=== PATIENT | male | born 1990 | race Caucasian/White ===

== ENCOUNTER 2016-11-17 15:03 | Emergency (ER) | payer SELFPAY ==
[~2016-11-17] VITALS: Ht 175.3 cm; Wt 81.4 kg
[2016-11-17 15:07] VITALS: Ht 175.3 cm; Wt 81.4 kg
--- NOTE | 2016-11-17 16:17 | ERD ---
ER Documentation Chief Complaint Date/Time DATE: 11/17/16 TIME: 16:13 Chief Complaint right knee pain/injury ( dislocation) HPI Patient is a 26-year-old male who presents to the ED with right knee pain 2 days. Patient states that he was boxing with his brother and twisted. States that his patella moved to the side. He does have a history of patellar dislocation on the left knee. States that the same thing occurred on the right knee. He states that him and his brother put the patella back in place. He does not have pain when he is laying down however he is unable to bear weight and unable to flex and extend due to the pain. Denies radiation of pain. Denies hitting his head, passing out or losing consciousness. Has not taken any medicine for his symptoms besides Motrin which has helped. Has also been icing. Using crutches no other complaints. ROS All systems reviewed and are negative except as per history of present illness. Medications Home Meds Active Scripts Naproxen* (Naprosyn*) 500 Mg Tablet, 500 MG PO BID Y for PAIN AND/OR INFLAMMATION, #30 TAB Prov:KWASI PELLETIER PA-C 11/17/16 Allergies Allergies: Coded Allergies: No Known Allergy (Unverified , 11/17/16) PMhx/Soc Medical and Surgical Hx: pt denies Medical Hx, pt denies Surgical Hx Hx Alcohol Use: No Hx Substance Use: No Hx Tobacco Use: No Smoking Status: Never smoker FmHx Family History: No coronary disease, No diabetes, No other Physical Exam Vitals Vital Signs Date Time Temp Pulse Resp B/P Pulse Ox O2 Delivery O2 Flow Rate FiO2 11/17/16 15:07 98.5 76 19 121/73 100 Physical Exam GENERAL: Well-developed, well-nourished male. Appears in no acute distress. HEAD: Normocephalic, atraumatic. EYES: Pupils are equally reactive bilaterally. EOMs grossly intact. No conjunctival erythema. ENT: Moist mucous membranes. No uvula deviation. No kissing tonsils. No exudates. NECK: Supple. No lymphadenopathy or thyromegaly. No meningismus. negative kernig. negative brudinski. LUNG: Clear to auscultation bilaterally. No rhonchi, wheezing, rales or coarse breath sounds. HEART: Regular rate and rhythm. No murmurs, rubs or gallops. Extremities: Equal pulses bilaterally. No peripheral clubbing, cyanosis or edema. No unilateral leg swelling. NEUROLOGIC: Alert and oriented. swelling and ecchymosis to right knee. limited rom. no pain above or below right knee. no stepoffs or deformities. nontender to palpation to anterior knee, including patella.no stepoffs or deformities. limited strength in right leg. Normal speech. unSteady gait. Distal motor and neurovascularly intact. Able to bear weight and ambulate without pain. SKIN: Normal color. Warm and dry. No rashes or lesions. Capillary refill < 2 seconds Procedures/MDM ER COURSE: I kept the patient and/or family informed of laboratory and diagnostic imaging results throughout the emergency room course. MEDICAL DECISION MAKING: This is a 26-year-old male who presents with right knee pain x 2 days. Vital signs were reviewed. Patient is afebrile. Patient is not hypoxic. X-ray is read by radiologist shows patella ngoc. Large knee joint effusion negative for evidence of acute fracture please note that the skyline view of the patella was not obtained limits evaluation for subtle patellar fractures and also limits evaluation of the patellofemoral alignment. No further x-rays were done as patient does not have any tenderness on palpation of the anterior knee including the patella and the joints above and below. Insulted with my supervising physician Dr. Zaragoza agrees with my medical decision making and discharge plans. Low suspicion for dislocation, fracture, septic joint, compartment syndrome, osteomyelitis, cellulitis, avascular necrosis, neurological injury, vascular injury, tendon laceration. Patient refused pain medication here in the ED. Patient did not want any treatment today. DISCHARGE: At this time, patient is stable for discharge and outpatient management with no new complaints during the ER course. Patient was sent home with Naprosyn, knee immobilizer. Patient had crutches. Neurovascular intact post placement. CD of imaging report given to patient and advised to follow-up with orthopedics. Note for work also given.. Patient will be discharged home with instructions to recheck for new or worsening symptoms such as fever, nausea, weakness, LOC and to follow up with primary care in the next 1-2 days. Patient was advised to return to the ER for any new or worsening symptoms. Plan was discussed and patient and/or family understands and agrees. Home instructions were given. Departure Diagnosis: Primary Impression: Knee pain Chronicity: acute Laterality: right Qualified Code: M25.561 - Acute pain of right knee Condition: Stable KWASI PELLETIER PA-C Nov 17, 2016 16:17
--- NOTE | 2016-11-17 17:32 | RADRPT ---
PROCEDURE: XR Knee. CLINICAL INDICATION: 26-year of age, male. Right knee pain. History of patellar dislocation. TECHNIQUE: Three views of the right knee. COMPARISON: None available. FINDINGS: Negative for evidence of acute fracture. Normal alignment of the tibial femoral joint. There is patella ngoc. The ratio of the length of the patellar tendon to the length of the patella measures 1.4. A skyline view of the patella was not o btained. Joint spaces are preserved without evidence of arthritis. There is a large knee joint effusion. Mild prepatellar soft tissue swelling. IMPRESSION: Patella ngoc. Large knee joint effusion. Negative for evidence of acute fracture. Please note that a skyline view of the patella was not obtained that limits evaluation for subtle patellar fractures a nd also limits evaluation of the patellofemoral alignment. RPTAT: HCTS Physician Licha Date Time Electronically viewed and signed by Physician Licha on 11/17/2016 17:31 /
[2016-11-17] MEDS ORDERED: NAPR-260 PO (17:55)
== END 2016-11-17 18:56 | disposition home or self-care (01) ==
LOC: FTE 15:03
DX: S80.01XA Contusion of right knee, initial encounter (principal); X50.9XXA Other and unspecified overexertion or strenuous movements or postures, initial encounter; Y92.9 Unspecified place or not applicable
CPT/HCPCS: 73562